=== PATIENT | female | born 1985 | race Caucasian/White ===

== ENCOUNTER 2024-03-11 05:47 | Emergency (ER) | payer BC, SELFPAY ==
[2024-03-11 05:49] VITALS: BP 109/67
--- NOTE | 2024-03-11 06:26 | ED.MUSCINJ ---
Addendum entered and electronically signed by Yossi Peguero DO 03/15/24 22:08:
laceration is 1 cm
Addendum entered and electronically signed by Yossi Peguero DO 03/11/24 07:43:
Procedure note, digital block, 4 6-0 gut sutures, nail loosely approximated with skin glue
Original Note:
HPI-Injury
General
Chief Complaint: Musculo-Skeletal Complaint
Source: patient and spouse
Exam Limitations: none
Time Seen by Provider: 03/11/24 06:05
Nursing documentation reviewed up to this point in time: agreed with
Travel History
Have you had any contact with someone who has COVID-19?: No
Do you have any symptoms of coronavirus? Fever > 100 degrees, chills, cough, shortness of breath, sore throat, loss of taste or smell, muscle aches, or headache?: No
History of Present Illness-Injury
Is this injury a work related problem?: No
Is pt an associate of [facility]?: No
Initial Injury comments:
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
Past History
Past History
ED Past Medical History: None
ED Past Surgical History: None
Social History
Tobacco: Non-smoker
Alcohol: None
Drug: None
Personal:
Living: with family
Employment: Employed
Review of Systems
Review of Systems
All Other Systems: Not applicable
Musculoskeletal: Reports joint pain
Phy Exam
Physical Exam
Physical Exam:
Physical Exam
General: no apparent distress, not acutely ill
Lungs: no acute respiratory distress.
Neuro: alert and oriented. no focal neurological deficits
Skin: no rash
Psychiatric: well kept. interactive and cooperative
Extremities: Right small finger vertical laceration through the lateral nail through an acrylic nail
Injury Course
Orders/Labs/Results
Orders:
Orders
03/11/24 05:54
Finger(s)/Thumb 2 View Rt [CR Finger(s)/thumb Min 2 Vw Rt] Urgent
Comment:
Reason For Exam: dropped 30 lb weight against tip of r 5th finger
03/11/24 06:52
Cephalexin Monohydrate [Keflex] 500 mg PO NOW STA
03/11/24 07:17
Ibuprofen [Motrin] 600 mg PO NOW STA
Oxycodone/Acetaminophen [Percocet 5/325] 1 tablet PO NOW STA
*Critical Care Note
Total Time (30-74mins, 75-104mins- exclusive of procedures): Not Applicable
ED Attending Note
-
Portions of this chart may have been created with voice recognition software.� Occasional wrong word or��sound alike� substitutions may have occurred due to the inherent limitations of voice recognition software.
Discharge Plan
Departure
Patient Disposition: Home (Routine Discharge)
Date of Disposition: 03/11/24
Time of Disposition: 07:18
Patient with high blood pressure during this ER visit?: No
Condition: Good
Discharge Problem:
Nail bed injury
Instructions: Nail Avulsion, Finger Fracture ED
Prescriptions:
New
ibuprofen 600 mg tablet
600 mg PO Q8H PRN (Reason: Pain) Qty: 20 0RF
oxycodone-acetaminophen [Percocet] 5-325 mg tablet
1 tab PO Q6HPRN PRN (Reason: pain) Qty: 10 0RF
fluconazole [Diflucan] 100 mg tablet
100 mg PO DAILY Qty: 1 0RF
fluconazole [Diflucan] 100 mg tablet
100 mg PO DAILY Qty: 1 0RF
Referrals:
Park,Sadler, MD [Active] - Next open appointment
Activity Restrictions/Additional Instructions:
Call [facility] today to arrang followup
Interventions
Interventions:
*Risk Screen - Suicide Last Done: 03/11/24 06:27
*General Assessment Last Done: 03/11/24 05:49
*Neglect/Abuse Screening Last Done: 03/11/24 05:49
ED- Fall Risk Assessment Last Done: 03/11/24 05:49
*ED COVID-19 Vaccine History Last Done: 03/11/24 05:49
ED-Musculoskeletal Assessment Last Done: 03/11/24 06:27
Discharge Date and Time
Print Language: [id number]
[2024-03-11] MEDS: KEFLEX 500 MG PO (07:05)
[2024-03-11] MEDS: MOTRIN 600 MG PO (07:33)
[2024-03-11] MEDS: PERCOCET 5/325 1 TABLET PO (07:34)
[2024-03-11 08:19] VITALS: BP 113/75
== END 2024-03-11 08:35 | disposition home or self-care (01) ==
LOC: EMR 05:47
PROVIDERS: EMERGENCY PHYSICIAN Emergency Medicine
DX: S61.316A Laceration without foreign body of right little finger with damage to nail, initial encounter (principal); W22.8XXA Striking against or struck by other objects, initial encounter
CPT/HCPCS: 64450; 99284; 12001; 73140